=== PATIENT | female | born 1975 | race Two or more races ===

== ENCOUNTER 2020-01-10 08:30 | Day surgery (SDC) | payer OTHER | END 2020-01-10 13:16 | disposition home or self-care (01) | LOC: CIR.AMB 08:30 | PROVIDERS: ATTEND Surgery Surgery of the Hand | DX: M71.341 Other bursal cyst, right hand (principal); Z20.828 Contact with and (suspected) exposure to other viral communicable diseases; Z42.8 Encounter for other plastic and reconstructive surgery following medical procedure or healed injury ==